=== PATIENT | female | born 1975 | race Asian ===

== ENCOUNTER 2021-03-21 09:48 | Emergency (ER) | payer OTHER ==
[~2021-03-21] VITALS: Ht 157.5 cm; Wt 51.5 kg
--- NOTE | 2021-03-21 11:02 | PHYS DOC ---
Past History Past Medical History: No Pertinent History Past Surgical History: No Surgical History Alcohol Use: None Adult General Chief Complaint Chief Complaint: ABDOMINAL PAIN [facility] HPI Patient is a 45-year-old female presenting for abdominal pain. This is a chronic issue. Reports onset of symptoms was approximately 20 days ago after she ate old yogurt. States she had vague stomach cramping and lower suprapubic pain for several days prompting her to visit local urgent care. She thinks she was diagnosed with a UTI and given a course of amoxicillin which improved her symptoms. Nonetheless, patient had recurrence of abdominal pain but this time it was upper abdominal pain in nature, she visited same urgent care and they prescribed her Cipro and Flagyl, she is unsure why she was given this medication. She states she has been taking this medication without compliance issues for the last 4 days but still has vague abdominal pain that waxes and wanes. Reports pain is cramping in nature, no radiation, 6/10 severity. She has no significant medical issues, no medications on a daily basis, has history of x1 , no febrile illness or other concerning symptoms. Patient does admit that she has been constipated recently, last normal bowel movement for her was approximately 4 days prior. This is unusual for her. She reports she has had decreased p.o. intake in last 20 days given current illness, has had decreased exercise as well. Denies tobacco, alcohol or other illicit drug use. No history of pancreatitis. Review of Systems Review of Systems Fourteen body systems of review of systems have been reviewed. See HPI for pertinent positives and negative responses, other wilder all other systems are ne gative, non-pertinent or non-contributory Allergies Allergies Allergies Coded Allergies Type Severity Reaction Last Updated Verified No Known Drug Allergies 03/21/21 No Physical Exam Physical Exam Constitutional: Well developed, well nourished, no acute distress, non-toxic appearance. HENT: Normocephalic, atraumatic, bilateral external ears normal, oropharynx moist, no oral exudates, nose normal. Eyes: PERRLA, EOMI, conjunctiva normal, no discharge. Neck: Normal range of motion, no tenderness, supple, no stridor. Cardiovascular: Heart rate regular, sinus rhythm, no murmurs rubs or gallops Lungs & Thorax: Bilateral breath sounds clear to auscultation Abdomen: Bowel sounds normal, soft, no tenderness, no masses, no pulsatile masses. Nonsurgical abdomen, no peritoneal signs Skin: Warm, dry, no erythema, no rash. Back: No tenderness, no CVA tenderness. Extremities: No tenderness, no cyanosis, no clubbing, ROM intact, no edema. Neurologic: Alert and oriented X 3, grossly normal motor & sensory function, no focal deficits noted. Psychologic: Affect normal, judgement normal, mood normal. Current Patient Data Vital Signs Vital Signs Date Time Temp Pulse Resp B/P (MAP) Pulse Ox O2 Delivery O2 Flow Rate FiO2 03/21/21 10:02 98.2 61 18 123/73 (90) 95 Room Air EKG EKG [] Radiology/Procedures Radiology/Procedures [] Heart Score C/O Chest Pain: No Risk Factors: Risk Factors: DM, Current or recent (<one month) smoker, HTN, HLP, family history of CAD, obesity. Risk Scores: Risk Factors: DM, Current or recent (<one month) smoker, HTN, HLP, family history of CAD, obesity. Course & Med Decision Making Course & Med Decision Making Hemodynamically stable, ambulatory and well-appearing female with nonconcerning HPI and physical examination Patient currently on treatment for diverticulitis? I discussed this with her at length. I reviewed entirety of ER work-up, her normal vitals and nonconcerning physical examination. I discussed little utility in further diagnostic work-up in ER setting I discussed most likely diagnosis of constipation with patient. Discussed supportive care practices such as taking Metamucil, MiraLAX, and increasing p.o. fluid and fiber intake. I discussed there might be a role for outpatient GI consultation if symptoms do not improve I did disclose that this might be an acute presentation of more concerning pathology; however, given current appearance little indication for further diagnostic work-up in ER setting. She has good access to care on post with PCP, advised her to call them tomorrow to review ER visit today Strict return precautions were discussed with good understanding by patient, all questions and concerns addressed prior to ER departure Dragon Disclaimer Dragon Disclaimer This electronic medical record was generated, in whole or in part, using a voice recognition dictation system. Departure Departure: Impression: Primary Impression: Nonspecific abdominal pain Additional Impression: Constipation Disposition: HOME / SELF CARE / HOMELESS Condition: STABLE Referrals: PCP,UNKNOWN (PCP) Patient Instructions: Abdominal Pain (Nonspecific), Constipation, Adult Additional Instructions: You were seen for constipation. Make sure to drink plenty of fluids and eat lots of fruits and vegetables. Please aim to ingest at least 10 g of fiber daily. You should use [id number] Metamucil and/or Miralax to help your giorgi wel movements become more regular. As discussed, if you want to start taking a "stomach pill", I would recommend you take [id number] Prilosec. These medications are not long-term and are intended to improve your current situation and so, it is essential that you call your primary care physician first thing tomorrow to review ER visit and discuss need for repeat evaluation this upcoming week. As disclosed, this might be an acute presentation more concerning pathology prior to outpatient follow-up please do not hesitate to come back for repeat evaluation and treatment as indicated. Return to the ED if you develop abdominal pain, fever, black/bloody stools, vomiting, or any other new or concerning symptoms. Problem Qualifiers YANNICK GUERIN DO March 21, 2021 11:02
[2021-03-21 11:17] VITALS: BP 117/70
== END 2021-03-21 11:15 | disposition home or self-care (01) ==
LOC: ER 09:48
DX: K59.00 Constipation, unspecified (principal)
CPT/HCPCS: 99282